=== PATIENT | male | born 1970 | race Caucasian/White ===

== ENCOUNTER 2017-10-10 12:23 | Emergency (ER) | payer BC ==
[2017-10-10 12:29] VITALS: BP 161/100
--- NOTE | 2017-10-10 12:55 | ER Document Report ---
ED General - General Chief Complaint: Abdominal Pain Stated Complaint: HERNIA Time Seen by Provider: 10/10/17 12:40 Notes: 47-year-old male here with complaints of hernia just above his bellybutton ongoing for the past 4 weeks. He states that it is progressively worsening and he notices it more so when he is at work moving his arms (he makes pizzas for a living). He has not noticed the pain with coughing sneezing or straining. He does not currently have any pain. He called "an Internet doctor" and spoke to him via face time web camera in the doctor told him to come into the ER for evaluation. Having normal bowel movements, last bowel movement today. No nausea or vomiting. - Related Data Allergies/Adverse Reactions: No Known Allergies Allergy (Verified 10/10/17 12:46) Past Medical History - Social History Smoking Status: Current Every Day Smoker Frequency of alcohol use: None Drug Abuse: Marijuana Family History: Reviewed & Not Pertinent Patient has suicidal ideation: No Patient has homicidal ideation: No Renal/ Medical History: Denies: Hx Peritoneal Dialysis Review of Systems - Review of Systems Notes: See history of present illness for pertinent positive review of systems; otherwise all review of systems have been reviewed and are negative Physical Exam - Vital signs Vitals: Temp Pulse Resp BP Pulse Ox 97.6 F 76 18 161/100 H 100 10/10/17 12:28 10/10/17 12:28 10/10/17 12:28 10/10/17 12:28 10/10/17 12:28 - Notes Notes: PHYSICAL EXAMINATION: GENERAL: Well-appearing and in no acute distress. HEAD: Atraumatic, normocephalic. EYES: Pupils equal round and reactive to light, extraocular movements intact, sclera anicteric, conjunctiva are normal. ENT: nares patent, oropharynx clear without exudates. Moist mucous membranes. NECK: Normal range of motion, supple without lymphadenopathy LUNGS: CTAB and equal. No wheezes rales or rhonchi. HEART: Regular rate and rhythm without murmurs ABDOMEN: Soft, no tenderness. No facial grimacing/wincing upon palpation. No guarding, no rebound. No hernia appreciated EXTREMITIES: Normal range of motion, no pitting edema. No cyanosis. NEUROLOGICAL: Cranial nerves grossly intact. Normal sensory/motor exams. PSYCH: Normal mood, normal affect. SKIN: Warm, Dry, normal turgor, no rashes or lesions noted Course - Re-evaluation Re-evalutation: 10/10/17 12:55 MEDICAL DECISION MAKING: Concern for ventral wall hernia There is currently no hernia or abdominal TTP Will prescribe stool softeners and patient given information for surgeon He declines prescription for pain medicine Patient understands and agrees to the plan of care - Vital Signs Vital signs: Temp Pulse Resp BP Pulse Ox 97.6 F 76 18 161/100 H 100 10/10/17 12:28 10/10/17 12:28 10/10/17 12:28 10/10/17 12:28 10/10/17 12:28 Discharge - Discharge Clinical Impression: Periumbilical hernia Condition: Good Disposition: HOME, SELF-CARE Additional Instructions: You were seen in the emergency department at [facility]. Use a hernia belt to keep the hernia minimal. Use stool softener to allow you to become more regular. Please followup with your primary physician in the next few days for further management/evaluation. Please return to the emergency department for worsening of symptoms or any symptom that you deem to be concerning or life-threatening. Thank you for allowing us to be part of your care. Prescriptions: Docusate Sodium [Dulcolax Stool Softener] 100 mg PO DAILYP PRN #14 capsule PRN Reason: Referrals: CYNTHIA KIRAN MD [[facility]ANT] - Follow up as needed
== END 2017-10-10 12:55 | disposition home or self-care (01) ==
LOC: ER 12:23
DX: K42.9 Umbilical hernia without obstruction or gangrene (principal); F17.200 Nicotine dependence, unspecified, uncomplicated
CPT/HCPCS: 99283